=== PATIENT | female | born 1985 | race Two or more races ===

== ENCOUNTER 2023-04-04 20:03 | Emergency (ER) | payer OTHER ==
[~2023-04-04] VITALS: Ht 165.1 cm; Wt 113.6 kg
[2023-04-04] MEDS ORDERED: ONDANSETRON HCL 4 MG/2 ML VIAL IV ONE (23:45)
[2023-04-04] MEDS ORDERED: MORPHINE SULFATE 4 MG/ML SYR/VIAL IV ONE (23:45)
[2023-04-05] MEDS ORDERED: MORPHINE SULFATE INJ 2 MG/ml SYRG IV PRN (02:45)
[2023-04-05] MEDS ORDERED: ACETAMINOPHEN 325 MG TAB PO PRN (02:45)
[2023-04-05] MEDS ORDERED: ONDANSETRON HCL 4 MG/2 ML VIAL IV PRN (02:45)
[2023-04-05] MEDS ORDERED: HYDROcodone-ACET 5/325MG TAB PO PRN (02:45)
[2023-04-05 03:11] LABS: Basophils # (auto) 0.1 10 ^3/uL (0-0.2); Basophils % (auto) 0.9 % (0.0-2.0); Eosinophils # (auto) 0 10 ^3/uL (0-0.8); Eosinophils % (auto) 0.4 % (0.0-7.0); Hematocrit 38.2 % (36.0-46.0); Hemoglobin 13.2 g/dL (12.2-16.2); Lymphocytes # (auto) 2.8 10 ^3/uL (0.4-5.4); Lymphocytes % (auto) 20.6 % (10.0-50.0); Mean Corpuscular Hemoglobin 32.1 pg (28.0-32.0); Mean Corpuscular Hgb Conc. 34.4 g/dL (32.0-36.0); Mean Corpuscular Volume 93.2 fL (80.0-100.0); Monocytes # (auto) 0.8 10 ^3/uL (0-1.3); Monocytes % (auto) 5.6 % (0.0-12.0); Neutrophils % (auto) 72.5 % (37.0-80.0); Nucleated Red Blood Cells % 0.1 %; Red Cell Distribution Width 13.3 % (11.8-14.3); White Blood Cell 13.8 10^3/uL (4.4-10.8)
[2023-04-05 03:18] LABS: INR 1.06 (0.9-1.15); Partial Thromboplastin Time 29.9 SEC (24.5-34.5)
[2023-04-05 03:22] LABS: Albumin 3.5 g/dL (3.4-5.0); Calcium 8.3 mg/dL (8.5-10.1); Potassium 4.1 mmol/L (3.5-5.1)
[2023-04-05 03:25] LABS: BUN/Creatinine Ratio 12.8 (10.0-20.0); Bilirubin, Total 0.3 mg/dL (0.2-1.0); Total Protein 7.2 g/dL (6.4-8.2)
[2023-04-05] MEDS ORDERED: MORPHINE SULFATE 4 MG/ML SYR/VIAL IV ONE ×2 (07:45→11:45)
[2023-04-05] MEDS ORDERED: PANTOPRAZOLE 40 MG TAB PO SCH (10:00)
[2023-04-05] MEDS ORDERED: ONDANSETRON HCL 4 MG/2 ML VIAL IV ONE (11:45)
[2023-04-05 12:14] VITALS: BP 121/77
== END 2023-04-05 12:33 | disposition short-term general hospital (02) ==
LOC: ER 20:03 → EDBD 20:03 → OVERFLOW 04-05 02:47 → UNDOADMIN 04-05 02:47 → ER 04-05 12:33
DX: S82.392A Other fracture of lower end of left tibia, initial encounter for closed fracture (principal); S82.452A Displaced comminuted fracture of shaft of left fibula, initial encounter for closed fracture; V89.2XXA Person injured in unspecified motor-vehicle accident, traffic, initial encounter; Y93.89 Activity, other specified; Y92.89 Other specified places as the place of occurrence of the external cause; Y99.8 Other external cause status
CPT/HCPCS: 29515; 36415; 73610; 80053; 85025; 85610; 85730; 96374; 96375; 96376; 99285; J2270; J2405